=== PATIENT | male | born 1955 ===

== ENCOUNTER 2024-04-25 15:19 | Outpatient (REF) | payer SELFPAY ==
[2024-04-25 15:48] LABS: Abs Immature Grans 0.02 10^3/uL (0.0-0.06); Absolute Basophil Count 0.03 10^3/uL (0.0-0.2); Absolute Eosinophil Count 0.14 10^3/uL (0.0-0.7); Absolute Lymphocyte Count 0.84 10^3/uL (1.2-3.4); Absolute Monocyte Count 0.67 10^3/uL (0.1-0.8); Absolute Neutrophil Count 4.08 10^3/uL (1.2-6.7); Basophils % 0.5 %; Eosinophils % 2.4 %; HCT 30.4 % (40.0-50.0); HGB 8.9 g/dL (13.5-17.5); Immature Grans % 0.3 %; Lymphocytes % 14.5 %; MCH 23.3 pg (27.0-33.0); MCHC 29.3 % (32.0-36.0); MCV 80 fL (80-95); MPV 9.8 fL (8.0-11.0); Monocytes % 11.6 %; Neutrophils % 70.7 %; Platelet Count 165 10^3/uL (130-400); RBC 3.82 10^6/uL (4.36-5.78); RDW 19.8 % (11.8-14.1); WBC 5.78 10^3/uL (4.4-10.8)
[2024-04-25 16:04] LABS: ALT 77 U/L (16-63); AST 26 U/L (15-37); Albumin 2.7 g/dL (3.4-5.0); Alkaline Phosphatase 149 U/L (46-116); Anion Gap 9.3 mmol/L (3-11); BUN 51 mg/dL (7-18); Bilirubin, Total 2.3 mg/dL (0.2-1.0); CO2 28.7 mmol/L (21.0-32.0); CREATININE 2.6 mg/dL (0.70-1.30); Calcium 8.4 mg/dL (8.5-10.1); Chloride 98 mmol/L (98-107); Estimated GFR 25.72 (mL/min/1.73m2); Glucose 148 mg/dL (74-106); Potassium 3.8 mmol/L (3.5-5.1); Sodium 136 mmol/L (136-145); Total Protein 6.7 g/dL (6.4-8.2)
== END 2024-04-25 15:20 | disposition home or self-care (01) ==
LOC: LBN 15:19
PROVIDERS: Visit Provider Family Medicine
DX: I50.23 Acute on chronic systolic (congestive) heart failure (principal)
CPT/HCPCS: 80053; 85025

== ENCOUNTER 2024-04-30 15:23 | Outpatient (REF) | payer MEDICARE, SELFPAY ==
[2024-04-30 13:19] LABS: Abs Immature Grans 0.02 10^3/uL (0.0-0.06); Absolute Basophil Count 0.03 10^3/uL (0.0-0.2); Absolute Eosinophil Count 0.11 10^3/uL (0.0-0.7); Absolute Lymphocyte Count 0.78 10^3/uL (1.2-3.4); Absolute Monocyte Count 0.55 10^3/uL (0.1-0.8); Absolute Neutrophil Count 5.63 10^3/uL (1.2-6.7); Basophils % 0.4 %; Eosinophils % 1.5 %; HCT 29.5 % (40.0-50.0); HGB 8.7 g/dL (13.5-17.5); Immature Grans % 0.3 %; MCH 23.2 pg (27.0-33.0); MCHC 29.5 % (32.0-36.0); MCV 79 fL (80-95); MPV 9.6 fL (8.0-11.0); Monocytes % 7.7 %; Neutrophils % 79.1 %; Platelet Count 180 10^3/uL (130-400); RBC 3.75 10^6/uL (4.36-5.78); RDW 19.9 % (11.8-14.1); RDW-SD 55.9 fL; WBC 7.12 10^3/uL (4.4-10.8)
[2024-04-30 13:32] LABS: ALT 41 U/L (16-63); AST 22 U/L (15-37); Albumin 2.6 g/dL (3.4-5.0); Alkaline Phosphatase 143 U/L (46-116); Anion Gap 9.1 mmol/L (3-11); BUN 54 mg/dL (7-18); Bilirubin, Total 2.6 mg/dL (0.2-1.0); CO2 29.9 mmol/L (21.0-32.0); CREATININE 2.6 mg/dL (0.70-1.30); Calcium 8.3 mg/dL (8.5-10.1); Chloride 99 mmol/L (98-107); Estimated GFR 25.72 (mL/min/1.73m2); Glucose 147 mg/dL (74-106); NT-proBNP 3294 pg/mL (<300); Potassium 3.9 mmol/L (3.5-5.1); Sodium 138 mmol/L (136-145); Total Protein 6.7 g/dL (6.4-8.2)
== END 2024-04-30 15:24 | disposition home or self-care (01) ==
LOC: LBN 15:23
PROVIDERS: Visit Provider Family Medicine
DX: I50.23 Acute on chronic systolic (congestive) heart failure (principal)
CPT/HCPCS: 80053; 83880; 85025

== ENCOUNTER 2024-05-05 12:34 | Outpatient (REF) | payer MEDICARE, SELFPAY ==
[2024-05-05 13:25] LABS: Abs Immature Grans 0.03 10^3/uL (0.0-0.06); Absolute Basophil Count 0.03 10^3/uL (0.0-0.2); Absolute Lymphocyte Count 1.13 10^3/uL (1.2-3.4); Absolute Monocyte Count 0.68 10^3/uL (0.1-0.8); Absolute Neutrophil Count 2.93 10^3/uL (1.2-6.7); Basophils % 0.6 %; HCT 29.9 % (40.0-50.0); HGB 8.7 g/dL (13.5-17.5); Immature Grans % 0.6 %; Lymphocytes % 23.1 %; MCH 23.1 pg (27.0-33.0); MCHC 29.1 % (32.0-36.0); MCV 80 fL (80-95); MPV 9.2 fL (8.0-11.0); Monocytes % 13.9 %; Neutrophils % 59.8 %; Platelet Count 196 10^3/uL (130-400); RBC 3.76 10^6/uL (4.36-5.78); RDW 20.1 % (11.8-14.1); RDW-SD 57.4 fL
[2024-05-05 14:13] LABS: ALT 23 U/L (16-63); AST 20 U/L (15-37); Albumin 2.6 g/dL (3.4-5.0); Alkaline Phosphatase 139 U/L (46-116); Anion Gap 9.4 mmol/L (3-11); BUN 33 mg/dL (7-18); Bilirubin, Total 3.2 mg/dL (0.2-1.0); CO2 31.6 mmol/L (21.0-32.0); CREATININE 1.8 mg/dL (0.70-1.30); Calcium 8.5 mg/dL (8.5-10.1); Chloride 102 mmol/L (98-107); Estimated GFR 39.99 (mL/min/1.73m2); Glucose 137 mg/dL (74-106); Magnesium 1.8 mg/dL (1.8-2.4); Potassium 3.3 mmol/L (3.5-5.1); Sodium 143 mmol/L (136-145); Total Protein 6.7 g/dL (6.4-8.2); Vitamin B12 1208 pg/mL (193-986)
== END 2024-05-05 12:35 | disposition home or self-care (01) ==
LOC: LBN 12:34
PROVIDERS: Visit Provider Family Medicine
DX: E78.5 Hyperlipidemia, unspecified (principal)
CPT/HCPCS: 80053; 82607; 83735; 85025